=== PATIENT | female | born 1965 | race Caucasian/White ===

== ENCOUNTER 2022-05-24 08:39 | Outpatient (CLI) | payer BC, SELFPAY ==
[2022-05-24 15:12] LABS: Chloride* 106 mmol/L (96-114)
[2022-05-24 15:13] LABS: Sodium* 138 mmol/L (135-149)
[2022-05-24 15:15] LABS: Creatinine* 0.6 mg/dL (0.5-1.5); Estimated Glomerular Filt Rate 103 ml/min
[2022-05-24 15:16] LABS: Blood Urea Nitrogen* 13 mg/dL (7-30); Calcium* 9.1 mg/dL (8.4-10.6); Carbon Dioxide* 25 mmol/L (20-32); Glucose* 104 mg/dL (60-115)
== END 2022-05-24 08:40 | disposition home or self-care (01) ==
PROVIDERS: PCP Family Medicine; Visit Provider Family Medicine
DX: Z13.1 Encounter for screening for diabetes mellitus (principal); E78.5 Hyperlipidemia, unspecified; F41.9 Anxiety disorder, unspecified; Z13.0 Encounter for screening for diseases of the blood and blood-forming organs and certain disorders involving the immune mechanism
CPT/HCPCS: 80048

== ENCOUNTER 2022-09-29 13:42 | Outpatient (CLI) | payer BC, SELFPAY | END 2022-09-29 13:43 | disposition home or self-care (01) | LOC: LONREF 13:44 | PROVIDERS: PCP Family Medicine; Visit Provider Family Medicine | DX: I10 Essential (primary) hypertension (principal); E78.5 Hyperlipidemia, unspecified | CPT/HCPCS: 80048 ==

== ENCOUNTER 2022-11-01 07:01 | Outpatient (CLI) | payer BC, SELFPAY ==
--- NOTE | 2022-11-01 07:15 | CRLHL7_ITS ---
For Patients: As a result of the Century Cures Act, medical imaging exams and procedure reports are released immediately into your electronic medical record. You may view this report before your referring provider. If you have questions, please contact your health care provider. Indication: Headaches and intermittent blurred vision Technique: Noncontrast sagittal T1 weighted, axial FLAIR, axial T2 weighted, and axial diffusion weighted sequences are provided. Comparison: No prior studies available for comparison at this institution. Findings: Few small foci of diffusion and FLAIR signal abnormality in the left frontal lobe centrum semiovale without signal loss on ADC map. No evidence of diffusion restriction to suggest acute ischemia. Few additional foci of FLAIR signal abnormality in the left frontal centrum semiovale there nonspecific. Multiple nodular foci of FLAIR signal abnormality in the anterior medial left frontal subcortical white matter without mass effect (series 4 image 24-26). No midline shift. No hydrocephalus. No suspicious extra-axial collection or acute intracranial hemorrhage. Expected intracranial vascular flow voids are preserved. No evidence of pathologic susceptibility artifact. The calvarium is intact. The paranasal sinuses, mastoid air cells, and orbits are unremarkable. Impression: 1. Few small foci of diffusion and FLAIR signal abnormality in the left frontal lobe centrum semiovale without signal loss on ADC map, may represent subacute ischemic infarcts or T2 shine through from chronic microangiopathic changes. 2. 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 Dictated by Spencer Patiño MD @ 11/01/2022 8:32:37 AM (Electronically Signed)
== END 2022-11-01 07:02 | disposition home or self-care (01) ==
PROVIDERS: PCP Family Medicine; Visit Provider Family Medicine
DX: R51.9 Headache, unspecified (principal); H53.8 Other visual disturbances
CPT/HCPCS: 70551

== ENCOUNTER 2023-06-03 08:28 | Outpatient (CLI) | payer BC, SELFPAY | END 2023-06-03 08:29 | disposition home or self-care (01) | PROVIDERS: PCP Family Medicine; Visit Provider Family Medicine | DX: Z00.00 Encounter for general adult medical examination without abnormal findings (principal); I10 Essential (primary) hypertension; E78.5 Hyperlipidemia, unspecified; F41.9 Anxiety disorder, unspecified | CPT/HCPCS: 80048; 80061 ==

== ENCOUNTER 2023-10-04 15:27 | Outpatient (CLI) | payer BC, SELFPAY ==
--- NOTE | 2023-10-04 15:40 | MM_ITS ---
Patient: YEISON CASAREZ Facility:?[facility] Patient ID:?[id number] Site Patient ID:?[id number]. Site :?1965 Study:?XRay-Breast Bilateral 3D W/CAD-10/04/2023 3:53:15 PM Ordering Physician:Armando Final Report: BILATERAL SCREENING MAMMOGRAM WITH COMPUTER-AIDED DETECTION AND TOMOSYNTHESIS TECHNIQUE: CC and MLO views were obtained. These mammographic images have been obtained using full-field digital technique. These mammographic images were interpreted with the benefit of computer-aided detection. Breast Tomosynthesis was used in this interpretation. COMPARISON FILM: 08/14/19, 03/20/15, 05/12/12. FINDINGS: The breasts are heterogeneously dense, which may obscure small masses. IMPRESSION: There is no radiographic evidence for malignancy. ASSESSMENT: BI-RADS Category 1: Negative RECOMMENDATION: Routine screening mammogram in 1 year. A lay language report of this examination will be provided to the patient. Spencer Hedrick M.D. Diagnostic Radiologist [email or web address] DSM/sp R& Transcribed: 5:53 p.m. SP/Dictated by: Spencer Hedrick MD @ 10/05/2023 1:26:00 PM Signed by:?Spencer Hedrick MD @10/06/2023 5:40:59 AM (Electronic Signature)
== END 2023-10-04 15:28 | disposition home or self-care (01) ==
PROVIDERS: PCP Family Medicine; Visit Provider Family Medicine
DX: Z12.31 Encounter for screening mammogram for malignant neoplasm of breast (principal); R92.2 Inconclusive mammogram
CPT/HCPCS: 77063; 77067

== ENCOUNTER 2024-06-29 08:32 | Outpatient (CLI) | payer BC, SELFPAY | END 2024-06-29 08:33 | disposition home or self-care (01) | PROVIDERS: PCP Family Medicine; Visit Provider Family Medicine | DX: I10 Essential (primary) hypertension (principal) | CPT/HCPCS: 80048 ==

== ENCOUNTER 2024-09-22 19:16 | Inpatient (IN) | payer BC, SELFPAY ==
--- OUTSIDE RECORDS SUMMARY | 2024-09-22 19:19 | XMS_ITS | Clinical Summary ---
Author Organization [facility] Address [facility] [place] [address] Care Team Providers Care Services Coordinator Name Role Phone Gume Elena MD Primary Care Provider [phone] Allergies No known active allergies Medications ALPRAZolam (XANAX) 0.5 mg tablet Take 0.5 mg by mouth. In am Active omeprazole (PRILOSEC) 20 mg Delayed-Release capsule Take 20 mg by mouth once daily if needed. Active WalkerIndicatio ns:Spondylolist hesis of lumbar region Rolling Walker for home use for 3 months 1 Device 01/04/2019 Active Premarin 0.625 mg tablet 11/16/2022 Active metoprolol succinate (TOPROL XL) 25 mg Sustained-Relea se tablet Take 25 mg by mouth once daily. 11/26/2022 Active lisinopriL (PRINIVIL; ZESTRIL) 40 mg tablet Take 40 mg by mouth once daily. 10/24/2022 Active fluticasone (50 mcg per actuation) nasal solution (FLONASE) SHAKE LIQUID AND USE 2 SPRAYS IN EACH NOSTRIL EVERY DAY 11/17/2022 Active Active Problems Problem Noted Date Diagnosed Date Spondylolisthesis of lumbar region 01/01/2019 Anxiety 01/01/2019 GERD (gastroesophageal reflux disease) 9 Hot flashes 01/01/2019 Tobacco abuse 01/01/2019 Social History Tobacco Use Types Packs/Day Years Used Date Smoking Tobacco: Every Day Cigarettes 0.5 42 Started: 1980 Smokeless Tobacco: Never Tobacco Cessation:Ready to Q uit: Yes; Counseling Given: Yes Alcohol Use Standard Drinks/Week Comments No 0 (1 standard drink = 0.6 oz pur e alcohol) Comments No Sex and Gender Information Value Date Recorded Sex Assigned at Not on file 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 Gender Identity Not on file Sexual Orientation Not on file Obstetrics History Last Filed Vital Signs Vital Sign Reading Time Taken Comments Blood Pressure 181/79 12/01/2022 2:50 PM CDT Pulse 82 12/01/2022 2:50 PM CDT Temperature 37.1 C (98.8 F) 01/04/2019 7:37 AM CDT Respiratory Rate 16 01/04/2019 7:37 AM CDT Oxygen Saturation 96% 12/01/2022 2:50 PM CDT Inhaled Oxygen Concentration - - Weight 64.1 kg (141 lb 4.8 oz) 12/01/2022 2:50 P M CDT Height 160 cm (5' 2.99) 01/01/2019 6:31 AM CDT Body Mass Index 25.04 01/01/2019 6:31 AM CDT Plan of Treatment Health Maintenance Due Date Last Done Comments Tdap 1974 Depression screening for age 12+ 1975 HIV for age 15-65 1978 Hepatitis C screening for age 18-79 1981 Pneumococcal series for age 50+ (1 of 2 - PCV) 1982 Tetanus booster 1983 Pap test for age 21-65 01/27/1984 Colonoscopy through age 75 01/27/2008 Lipids for age 45-75 01/27/2008 Mammogram for age 45-75 01/27/2008 Zoster (shingles) series for age 50+ (1 of 2) 2013 BMI (ht and wt on same day) for age 18+ 05/08/2017 1 COVID-19 vaccine series (2023- season) 2024 07/21/2021, 09/22/2020 Influenza for age 50-64 04/01/2024 RSV vaccine for adults or pr egnancy (1 - 1-dose 75+ series) 2038 Medical Devices Implanted Type Area Occupational Health Physiotherapist Device Identifier Shelf Expiration Date Model / Serial / Lot [id number] ne 1-4mm 90cc Medtronic Chips Canclls Freeze Dried Implanted:Qty: 1 on 01/01/2019 by Emmaunel Serrano MD at [facility] Explanted:at [facility] (Quantity not on file) Spine Medtronic Spine/Ortho 05/13/2023 [id number] / [id number] / [id number] ne Matrix 6cc [place] Dbf Putty Dbm Implanted:Qty: 1 on 01/01/2019 by Emmanuel Serrano MD at [facility] Explanted:at [facility] (Quantity not on file) Spine Medtronic Spine/Ortho 11/06/2020 [id number] / [id number] / Cnnctr Lmbr Sm 5.5mm Tsrh 3dx Titnm - [id number] Implanted:Qty: 6 on 01/01/2019 by Emmanuel Serrano MD at [facility] Spine Medtronic Spine/Ortho [id number] / / Gianluca Lmbr 90x5.5mm Tsrh 3d Cvd Titnm - [id number] Implanted:Qty: 2 on 01/01/2019 by Emmanuel Serrano MD at [facility] Spine Medtronic Spine/Ortho [id number] / / Screw Lmbr Post 6.5x45mm Tsrh 3dx Og Thin Va - [id number] Implanted:Qty: 2 on 01/01/2019 by Emmanuel Serrano MD at [facility] Spine Medtronic Spine/Ortho [id number] / / Screw Lmbr Post 7.5x40mm Tsrh 3dx Og Thin Va - [id number] Implanted:Qty: 2 on 01/01/2019 by Emmanuel Serrano MD at [facility] Spine Medtronic Spine/Ortho [id number] / / Screw Lmbr Post 7.5x45mm Tsrh 3dx Og Thin Va - [id number] Implanted:Qty: 2 on 01/01/2019 by Emmanuel Serrano MD at [facility] Spine Medtronic Spine/Ortho [id number] / / Spacer [id number] Implanted:Qty: 1 on 01/01/2019 by Emmanuel Serrano MD at [facility] Spine 04/20/2025 [id number] / / [id number] Description:SPACER [id number] Insurance Advance Directives * Full Code (Latest Code Status on File) Date Activated Date Inactivated Comments 01/01/2019 1:06 PM 01/04/2019 4:04 PM * Full Code Date Activated Date Inactivated Comments 07/19/2011 5:49 PM 07/20/2011 4:47 PM * Full Code Date Activated Date Inactivated Comments 07/19/2011 12:34 PM 07/19/2011 5:49 PM Care Teams Services Coordinator Relationship Specialty Start Date End Date Gume Elena MD PCP - General Family Practice 07/16/11
[2024-09-22 19:30] VITALS: BP 146/78; PULSE 81; RESP 18; TEMP 36.6; O2SAT 98; BMI 23.9
--- NOTE | 2024-09-22 19:53 | ED.GENADULT ---
HPI - General Adult General Chief complaint: Abdominal Pain Stated complaint: abdomen pain, vomiting Time Seen by Provider: 09/22/24 19:36 History of Present Illness HPI narrative: This 59-year-old female comes in with upper epigastric pain that began this afternoon. She states that it is a rather constant pain and occurred after eating at [employer] at lunch. It came on a our 2 later and has been constant since then. She does not report any nausea, vomiting, lightheadedness, shortness of breath, or diaphoresis. She has had her gallbladder removed. She denies drinking alcohol. She does take Protonix for reflux symptoms. Related Data Previous Rx's ?Medication ?Instructions ?Recorded alprazolam 0.5 mg tablet 0.5 mg PO QDAY #60 tabs 04/09/24 lisinopril 40 mg tablet 40 mg PO QDAY #90 tabs 06/20/24 chlorthalidone 25 mg tablet 12.5 mg (1/2 x 25 mg) PO QDAY #45 06/29/24 tabs fluticasone propionate 50 2 spray intranasal QDAY #16 grams 06/29/24 mcg/actuation nasal spray,suspension lisinopril 20 mg tablet 20 mg PO QDAY #90 tabs 06/29/24 metoprolol succinate 50 mg 50 mg PO QDAY #90 tabs 06/29/24 tablet,extended release 24 hr olopatadine 0.1 % eye drops 1 drp ophthalmic (eye) BID #5 mL 06/29/24 pantoprazole 40 mg tablet,delayed 40 mg PO QDAY #90 tabs 08/10/24 release (Protonix) conjugated estrogens 1.25 mg tablet 1.25 mg PO QDAY #90 tabs 08/21/24 Allergies Allergy/AdvReac Type Severity Reaction Status Date / Time Penicillins Allergy Mild sick Verified 06/29/24 07:51 Review of Systems Status of ROS: Reports: 10 or more systems reviewed and unremarkable except as noted in History and below Narrative: Constitutional: No fevers, no weight gain or loss. Eyes: No discharge. No vision changes. HENT: No congestion, no sore throat, no ear pain. Cardiovascular: No chest pain, no palpitations. Respiratory: No shortness of breath, no wheezes, no cough. Gastrointestinal: No vomiting, no diarrhea. Upper epigastric abdominal pain as described above. Genitourinary: No dysuria, no hematuria. Musculoskeletal: Normal range of motion. Skin: No rashes, no pruritis. Neurological: No dizziness, weakness, sensory change, speech change. Endo/Heme/Allergies: No bruising or bleeding. No polydipsia. Pysch: no suicidality, no anxiety, no insomnia. All other systems reviewed and are negative. [facility] Medical History Allergic conjunctivitis ?H10.10 - Acute atopic conjunctivitis, unspecified eye (ICD-10) Hoarseness ?R49.0 - Dysphonia (ICD-10) Surgical History S/P lumbar fusion ?Z98.1 - Arthrodesis status (ICD-10) S/P ?Z98.891 - History of uterine scar from previous surgery (ICD-10) Status post laparoscopic cholecystectomy ?Z90.49 - Acquired absence of other specified parts of digestive tract (ICD-10) Status post hysterectomy ?Z90.710 - Acquired absence of both cervix and uterus (ICD-10) Status post bilateral oophorectomy ?Z90.722 - Acquired absence of ovaries, bilateral (ICD-10) Status post arthroscopy of right shoulder ?Z98.890 - Other specified postprocedural states (ICD-10) Family History (Updated 07/02/24 @ 11:53 by Carlee Colvin ~ [facility]) Mother High blood pressure Liver disease Kidney disease Daughter High blood pressure Social History (Updated 07/02/24 @ 11:54 by Carlee Colvin ~ [facility]) Highest level of school completed/degree received: 12th grade, no diploma Physical activity type: walking Smoking Status: Current some day smoker How often do you have a drink containing alcohol: never AUDIT-C Alcohol total score: 0 Non-prescribed substance use: denies use Gender Identity: female Are you currently sexually active: No Exam Narrative: Exam Narrative: Constitutional: Well-developed, well-nourished, no acute distress. HEENT: Normocephalic, atraumatic. Neck: Normal range of motion. Nontender. Supple. Heart: Regular. No murmurs. Normal rate. Intact distal pulses. Lungs: Clear to auscultation. No chest discomfort. No wheezes, rhonchi, or rales. Abdomen: Normal bowel sounds. Tenderness in the upper epigastric region. No rebound tenderness. Genitalia: Deferred. Back: No midline tenderness. Normal range of motion. Extremities: Normal range of motion. No injury. Skin: Intact. No rash. Warm. No erythema or pallor. Neurologic: No altered sensation. No weakness. Alert and oriented. Psychiatric: No suicidality. No anxiety or depression. No insomnia. Nursing notes and vitals signs are reviewed. Const: Vital Signs, click to edit/add: Vital Signs - 24 hr 09/22/24 19:30 Temperature 97.8 F Pulse Rate [Right Pulse Oximeter] 81 Respiratory Rate 18 Blood Pressure [Ri ght Upper Arm] 146/78 H Pulse Oximetry 98 Oxygen Delivery Me thod Room Air Course Vital Signs Vital signs: Initial Vital Signs Temperature 97.8 F 09/22/24 19:30 Temperature Source Temporal Artery Scan 09/22/24 19:30 Pulse Rate 81 09/22/24 19:30 Pulse Rhythm Regular 09/22/24 19:30 Pulse Strength 3+ Normal 09/22/24 19:30 Respiratory Rate 18 09/22/24 19:30 Blood Pressure 146/78 H 09/22/24 19:30 Blood Pressure Mean 100 09/22/24 19:30 Blood Pressure Position Standing 09/22/24 19:30 Pulse Oximetry 98 09/22/24 19:30 Oxygen Delivery Method Room Air 09/22/24 19:30 Vital Signs Temperature 97.8 F 09/22/24 19:30 Pulse Rate 81 09/22/24 19:30 Respiratory Rate 18 09/22/24 19:30 Blood Pressure 146/78 H 09/22/24 19:30 Pulse Oximetry 98 09/22/24 19:30 Oxygen Delivery Method Room Air 09/22/24 19:30 Temperature 97.8 F 09/22/24 19:30 Pulse Rate 81 09/22/24 19:30 Respiratory Rate 18 09/22/24 19:30 Blood Pressure 146/78 H 09/22/24 19:30 Pulse Oximetry 98 09/22/24 19:30 Oxygen Delivery Method Room Air 09/22/24 19:30 Medications Administered Medications: Generic Name Dose Route Start Last Admin Trade Name Freq PRN Reason Stop Dose Admin Lidocaine/Aluminum/Magnesium/Simeth 30 ml 09/22/24 19:49 09/22/24 19:54 Gi Cocktail (Visc Lido/Antacid) 30 Ml PO 09/22/24 19:50 30 ml ONCE ONE Administration Medical Decision Making MDM Narrative Medical decision making narrative: This patient comes in with upper epigastric abdominal pain as described above. She did receive a GI cocktail initially which did not provide any particular change in her symptoms. I then recommended an IV with labs and CT imaging to further evaluate. These tests were ordered and results are pending at the end of my shift. The patient also received IV doses of Toradol and Zofran. The oncoming ER physician will review results and proceed accordingly. Discharge Plan Discharge Clinical Impression: Abdominal pain Prescriptions: No Action chlorthalidone 25 mg tablet 12.5 mg PO QDAY Qty: 45 3RF lisinopril 20 mg tablet 20 mg PO QDAY Qty: 90 3RF metoprolol succinate 50 mg tablet extended release 24 hr 50 mg PO QDAY Qty: 90 3RF olopatadine 0.1 % drops 1 drp ophthalmic (eye) BID Qty: 5 11RF Rx Instructions: separate doses by at least 6-8 hours fluticasone propionate 50 mcg/actuation spray,suspension 2 spray intranasal QDAY Qty: 16 5RF Rx Instructions: administer into each nostril alprazolam 0.5 mg tablet 0.5 mg PO QDAY Qty: 60 2RF lisinopril 40 mg tablet 40 mg PO QDAY Qty: 90 0RF pantoprazole [Protonix] 40 mg tablet,delayed release (DR/EC) 40 mg PO QDAY Qty: 90 2RF conjugated estrogens 1.25 mg tablet 1.25 mg PO QDAY Qty: 90 3RF Follow Up/Referrals: Gume Elena MD [Primary Care Provider] -
[2024-09-22] MEDS: GI COCKTAIL (VISC LIDO/ANTACID) 30 ML PO (19:54)
--- OUTSIDE RECORDS SUMMARY | 2024-09-22 20:05 | XMS_ITS | Clinical Summary ---
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 Gender Identity Not on file Sexual Orientation [...] series) 2038 Medical Devices Implanted Type Area Apiculturist Device Identifier Shelf Expiration Date Model / Serial / Lot [id number] ne 1-4mm 90cc Medtronic Chips Canclls Freeze Dried Implanted:Qty: 1 on 01/01/2019 by Emmanuel Serrano MD at [facility] Explanted:at [facility] (Quantity not on file) Spine Medtronic Spine/Ortho 05/13/2023 [id number]# / [id number] / [id number] ne Matrix 6cc [place] Dbf Putty Dbm Implanted:Qty: 1 on 01/01/2019 by Emmanuel Serrano MD at [facility] Explanted:at [facility] (Quantity not on file) Spine Medtronic Spine/Ortho 11/06/2020 [id number]# / [id number] / Cnnctr Lmbr Sm 5.5mm Tsrh 3dx Titnm - [id number] Implanted:Qty: 6 on 01/01/2019 by Emmanuel Serrano MD at [facility] Spine Medtronic Spine/Ortho [id number] / / Gianluca Lmbr 90x5.5mm Tsrh 3d Cvd Titnm - [id number] Implanted:Qty: 2 on 01/01/2019 by Emmanuel Serrano MD at [facility] Spine Medtronic Spine/Ortho [id number] / / Screw Lmbr Post 6.5x45mm Tsrh 3dx Og Thin Va - [id number] Implanted:Qty: 2 on 01/01/2019 by Emmanuel Serrano MD at [facility] Spine Medtronic Spine/Ortho [id number] / / Screw Lmbr Post 7.5x40mm Tsrh 3dx Og Thin Va - [id number] Implanted:Qty: 2 on 01/01/2019 by Emmanuel Serrano MD at [facility] Spine Medtronic Spine/Ortho [id number] / / Screw Lmbr Post 7.5x45mm Tsrh 3dx Og Thin Va - [id number] Implanted:Qty: 2 on 01/01/2019 by Emmanuel Serrano MD at [facility] Spine Medtronic Spine/Ortho [id number] / / Spacer [id number] Implanted:Qty: 1 on 01/01/2019 by Emmanuel Serrano MD at [facility] Spine 04/20/2025 [id number] / / [id number] Description:SPACER [id number] Insurance Advance Directives * Full Code (Latest Code Status on File) Date Activated Date Inactivated Comments 01/01/2019 1:06 PM 01/04/2019 4:04 PM * Full Code Date Activated Date Inactivated Comments 07/19/2011 5:49 PM 07/20/2011 4:47 PM * Full Code Date Activated Date Inactivated Comments 07/19/2011 12:34 PM 07/19/2011 5:49 PM Care Teams Perfect Binder Feeder Offbearer Relationship Specialty Start Date End Date Gume Elena MD PCP - General Family Practice 07/16/11
--- NOTE | 2024-09-22 20:18 | CRLHL7_ITS ---
For Patients: As a result of the Century Cures Act, medical imaging exams and procedure reports are released immediately into your electronic medical record. You may view this report before your referring provider. If you have questions, please contact your health care provider. INDICATION: Upper abdominal/epigastric pain. TECHNIQUE: CT abdomen and pelvis acquired with 67 cc Omnipaque 370 IV contrast. COMPARISON: None. FINDINGS: Lower chest: Unremarkable. Liver: Unremarkable. Gallbladder and bile ducts: Cholecystectomy. No biliary calculi. There is mild intrahepatic biliary dilatation with mild enhancement of the common bile duct. Pancreas: Unremarkable. Spleen: Unremarkable. Adrenal glands: Unremarkable. Kidneys: Unremarkable. GI tract: No bowel obstruction. Mild ascending colonic wall thickening. Normal appendix. Vasculature: Atherosclerotic vascular calcifications. Grossly patent vasculature. No abdominal aortic aneurysm. Lymph nodes: No suspicious lymphadenopathy. Peritoneum/Abdominal Wall: No ascites or pneumoperitoneum. No acute abdominal wall abnormality. Pelvis: Normal bladder. No suspicious adnexal mass. Left adnexal cyst measures 2.0 cm. Bones: No acute abnormality. Lumbar fixation hardware grossly intact. IMPRESSION: 1. Mild intrahepatic biliary dilatation. While some of this may be expected in setting of prior cholecystectomy, presence of minimal common bile duct enhancement may reflect sequelae of ascending biliary tract infection. Clinical correlation recommended. 2. Mild ascending colonic wall thickening may reflect mild colitis. Please note that all CT scans at this facility use dose modulation, iterative reconstruction, and/or weight-based dosing when appropriate to reduce radiation dose to as low as reasonably achievable. Dictated by Loco Gomez MD @ 09/22/2024 10:04:56 PM (Electronically Signed)
[2024-09-22 21:11] LABS: Basophils Absolute Auto 0.02 K/uL (0.00-0.30); Basophils Percent Auto 0.3 % (0.0-3.0); Eosinophils Absolute Auto 0.07 K/uL (0.00-0.50); Eosinophils Percent Auto 1.1 % (0.0-7.0); Hematocrit 38.7 % (33.0-51.0); Hemoglobin* 12.8 gm/dL (12.0-16.0); Immature Granulocytes Abs Auto 0.01 K/uL (0.00-0.30); Immature Granulocytes Pct Auto 0.2 %; Lymphocytes Absolute Auto 1.42 K/uL (0.90-2.90); Lymphocytes Percent Auto 21.5 % (20-44); Mean Corpuscular HGB Conc 33 gm/dL (32-36); Mean Corpuscular Hemoglobin 30 pg (26-34); Mean Corpuscular Volume 91 fL (80-100); Monocytes Percent Auto 6.7 % (0.0-11.0); Neutrophils Absolute Auto 4.64 K/uL (1.7-7.0); Neutrophils Percent Auto 70.2 % (42.0-72.0); Platelet Count* 129 K/uL (140-440); RDW Coefficient of Variation % 13.6 % (11.5-15.5); Red Blood Count 4.27 m/uL (4.00-5.20); Slide Review Reflex No
[2024-09-22 21:26] LABS: Albumin* 4.4 g/dL (3.3-5.0); Chloride* 102 mmol/L (96-114); Potassium* 3.5 mmol/L (3.6-5.1); Sodium* 135 mmol/L (135-149)
[2024-09-22 21:28] LABS: Est. Creatinine Clearance* 48.87; Estimated Glomerular Filt Rate 64 ml/min
[2024-09-22 21:29] LABS: Anion Gap 11 mEq/L (7-15); Aspartate Amino Transferase* 543 U/L (12-35); Bilirubin Direct* 1.8 mg/dL (0.0-0.5); Blood Urea Nitrogen* 22 mg/dL (7-30); Calcium* 9.8 mg/dL (8.4-10.6); Carbon Dioxide* 22 mmol/L (20-32); Glucose* 128 mg/dL (60-115); Total Protein* 6.9 g/dL (6.0-8.3)
[2024-09-22 21:30] LABS: Alkaline Phosphatase* 376 U/L (40-150); Lipase* 389 U/L (23-300)
[2024-09-22 21:44] LABS: Alanine Aminotransferase* 785 U/L (4-35)
[2024-09-22 22:14] VITALS: BP 177/69; PULSE 60; RESP 18; TEMP 36.8; O2SAT 98
[2024-09-22] MEDS: KETOROLAC 30 MG/ML inj 15 MG IVP (22:21)
[2024-09-22] MEDS: ONDANSETRON 2 MG/ML inj 4 MG IVP (22:23)
[2024-09-22 23:06] VITALS: BP 149/65; PULSE 58; RESP 20; TEMP 36.4; O2SAT 90; BMI 24.6
[2024-09-22] MEDS: ERTAPENEM 1 GM in 0.9 % SODIUM CHLORIDE Mini-bag 100 ML IVPB (23:08)
--- NOTE | 2024-09-23 | CRLHL7_ITS ---
For Patients: As a result of the Cures Act, medical imaging exams and procedure reports are released immediately into your electronic medical record. You may view this report before your referring provider. If you have questions, please contact your health care provider. INDICATION: Pancreatitis. Hepatitis. COMPARISON: CT scan of the abdomen and pelvis dated 22 September 2024. FINDINGS: MRCP with heavily T2 weighted 2D and 3D MRCP images. T1 in- and out of phase and T2 weighted images also performed. No gadolinium administered. FINDINGS: No fatty infiltration of the liver. No focal abnormalities identified in the visualized portions of the liver, spleen, pancreas, right adrenal gland, and kidneys. No hydronephrosis. 2.1 cm left adrenal nodule shows signal dropout on the out of phase images and meets imaging criteria for an adrenal adenoma. No adenopathy. Cholecystectomy. No intra or extrahepatic bile duct dilation with the common bile duct measuring 8 mm. No filling defects in the biliary system. Normal size of the main pancreatic duct. Impression : 1. No bile duct dilation. No choledocholithiasis. Normal size of the main pancreatic duct. 2. No abnormalities of the pancreas identified. 3. Left adrenal adenoma. Dictated by Roney Anderson MD @ 09/23/2024 11:33:00 AM (Electronically Signed)
--- NOTE | 2024-09-23 00:32 | P.IMHP_ITS ---
Hospitalist- H&P: HPI History of Present Illness Date Seen: 09/23/24 Chief complaint: abdomen pain, vomiting Narrative: Tejal Jim is a 59 year old female with prior cholecystectomy and gastroesophageal reflux disease admitted through the emergency department with onset of epigastric pain around 2:00 a.m. this afternoon. This occurred about an hour after eating at [employer] for lunch. She reports she had a similar episode when she was in [place]. That episode was self-limited. She has been in [facility] for the last 2 weeks. She returned home last evening and she was feeling fine at that time. She self induced vomiting x2 today without relief of symptoms. She took Pepto- Bismol without relief of symptoms. She has been on her pantoprazole for reflux. She reports her reflux symptoms are primarily a burning sensation in her throat which she has not had today. The pain is in her epigastrium. It is a sharp pain. It does not radiate. She has had no fever. She had a cholecystectomy performed by Dr. Fisher in May of 2021 without complications. She rarely drinks alcohol. She had 2 drinks while she was in [place]. She has had no change in her bowel function. Her stools are normally loose or soft and often float in the toilet. Normal brown color. She was taking Imodium in [place] Review of Systems Narrative: She reports feeling well without other symptoms except as noted above [facility] Medical History (Updated 09/23/24 @ 00:44 by Sushil Jaime MD) Pancreatitis ?K85.90 - Acute pancreatitis without necrosis or infection, unspecified (ICD- 10) Hepatitis ?K75.9 - Inflammatory liver disease, unspecified (ICD-10) Allergic conjunctivitis ?H10.10 - Acute atopic conjunctivitis, unspecified eye (ICD-10) Hoarseness ?R49.0 - Dysphonia (ICD-10) Surgical History S/P lumbar fusion ?Z98.1 - Arthrodesis status (ICD-10) S/P ?Z98.891 - History of uterine scar from previous surgery (ICD-10) Status post laparoscopic cholecystectomy ?Z90.49 - Acquired absence of other specified parts of digestive tract (ICD- 10) Status post hysterectomy ?Z90.710 - Acquired absence of both cervix and uterus (ICD-10) Status post bilateral oophorectomy ?Z90.722 - Acquired absence of ovaries, bilateral (ICD-10) Status post arthroscopy of right shoulder ?Z98.890 - Other specified postprocedural states (ICD-10) Family History Mother High blood pressure Liver disease Kidney disease Daughter High blood pressure Social History (Updated 09/23/24 @ 00:39 by Sushil Jaime MD) Narrative: She lives in [place] with her boyfriend. Her daughter, Dionna Jim, taran Early is healthcare power of denture processor. Code status is full. She smokes cigarettes. She rarely drinks alcohol. She does not use recreational drugs. What is your current living situation?: I presently have a place to live Problems where you live: no known problems Problems where you live details: n/a In the past 12 months, utilities in danger of being shut off: no In past 12 months, lack of transportation kept you from medical appts, meetings, work, or getting things needed for daily living: no In the past 12 mos, have been you worried that your food would run out before you had money to buy more?: never true In the past 12 mos, the food you bought just didn't last and you didn't have money to buy more?: never true Highest level of school completed/degree received: 12th grade, no diploma Physical activity type: walking Smoking Status: Current every day smoker What tobacco products do you use: cigarettes Smoking packs per day: 0.5 Smoking cigarettes per day: 10.0 Years smoked: 40 Smoking pack-years: 20.00 How often do you have a drink containing alcohol: never AUDIT-C Alcohol total score: 0 Non-prescribed substance use: denies use Caffeine: Yes (occasionally) How often does anyone, including family, friends and others, physically hurt you : never How often does anyone, including family, friends and others, insult or talk down to you: never How often does anyone, including family, friends and others, threaten you with harm: never How often does anyone, including family, friends and others, scream or curse at you: never Gender Identity: female Are you currently sexually active: No Meds Home Medications and Allergies Home Medication Comments: Home medications reviewed. Recent changes include cutting her lisinopril from 40 mg to 20 mg and conjugated estrogen from 1.25 mg to 0.625 mg daily Allergies Allergy/AdvReac Type Severity Reaction Status Date / Time Penicillins Allergy Mild sick Verified 06/29/24 07:51 Exam Narrative: Exam Narrative: She is alert and appears in no distress. She reports feeling much better now at the time I see her. Eyes are normal without scleral icterus. Oropharynx is normal neck is supple without mass or adenopathy. Respirations are clear to auscultation. Cardiovascular: S1, S2, regular rate and rhythm. No murmur gallop or rub. Abdomen: Bowel sounds active. Abdomen is soft without significant tenderness. Even palpation in her epigastrium she reports is much better. There is no mass. Extremities without edema. Intact pulses and sensation. No tremor Const: Vital Signs, click to edit/add: Vital Signs - 24 hr 09/22/24 19:30 09/22/24 22:14 09/22/24 23:06 Temperature 97.8 F 98.2 F 97.5 F L Pulse Rate [Pulse Oximeter] 58 L Pulse Rate [Right Pulse Oximeter] 81 60 Respiratory Rate 18 18 20 Blood Pressure [Ri ght Arm] 149/65 H Blood Pressure [Ri ght Upper Arm] 146/78 H 177/69 H Pulse Oximetry 98 98 90 Oxygen Delivery Me thod Room Air Room Air Room Air Documenting provider has reviewed patient's vital signs: yes Hospitalist - H&P: Result Labs Labs: Short CBC 09/22/24 Range/Units 20:49 WBC 6.60 (4.50-11.00) K/uL Hgb 12.8 (12.0-16.0) gm/dL Hct 38.7 (33.0-51.0) % Plt Count 129 L (140-440) K/uL BMP 09/22/24 20:49 Sodium 135 Potassium 3.5 L Chloride 102 Carbon Dioxide 22 BUN 22 Creatinine 1.0 Glucose 128 H Calcium 9.8 Liver Function 09/22/24 Range/Units 20:49 Total Bilirubin 2.0 H (0.1-1.5) mg/dL Direct Bilirubin 1.8 H (0.0-0.5) mg/dL AST 543 H (12-35) U/L ALT 785 H (4-35) U/L Alkaline Phosphatase 376 H (40-150) U/L Albumin 4.4 (3.3-5.0) g/dL Imaging CT scan - abdomen: Radiologist's impression: INDICATION: Upper abdominal/epigastric pain. TECHNIQUE: CT abdomen and pelvis acquired with 67 cc Omnipaque 370 IV contrast. COMPARISON: None. FINDINGS: Lower chest: Unremarkable. Liver: Unremarkable. Gallbladder and bile ducts: Cholecystectomy. No biliary calculi. There is mild intrahepatic biliary dilatation with mild enhancement of the common bile duct. Pancreas: Unremarkable. Spleen: Unremarkable. Adrenal glands: Unremarkable. Kidneys: Unremarkable. GI tract: No bowel obstruction. Mild ascending colonic wall thickening. Normal appendix. Vasculature: Atherosclerotic vascular calcifications. Grossly patent vasculature. No abdominal aortic aneurysm. Lymph nodes: No suspicious lymphadenopathy. Peritoneum/Abdominal Wall: No ascites or pneumoperitoneum. No acute abdominal wall abnormality. Pelvis: Normal bladder. No suspicious adnexal mass. Left adnexal cyst measures 2.0 cm. Bones: No acute abnormality. Lumbar fixation hardware grossly intact. IMPRESSION: 1. Mild intrahepatic biliary dilatation. While some of this may be expected in setting of prior cholecystectomy, presence of minimal common bile duct enhancement may reflect sequelae of ascending biliary tract infection. Clinical correlation recommended. 2. Mild ascending colonic wall thickening may reflect mild colitis. Please note that all CT scans at this facility use dose modulation, iterative reconstruction, and/or weight-based dosing when appropriate to reduce radiation dose to as low as reasonably achievable. Dictated by Loco Gomez MD @ 09/22/2024 10:04:56 PM Assessment and Plan Assessment and plan (1) Abdominal pain: Problem comment: Sharp epigastric pain. With associated changes and lipase and transaminases I suspect she may have biliary obstruction, possibly due to a gallstone. Obtain MRCP or ultrasound. Surgical consult. Trend abnormal labs. Ertapenem for possible cholangitis Status: Acute (2) Pancreatitis: Problem comment: Possibly due to biliary disease. Clinically better. Trend lipase. Status: Acute (3) Hepatitis: Problem comment: Suspect due to biliary disease. Check acute hepatitis panel. Status: Acute (4) GERD (gastroesophageal reflux disease): Problem comment: Continue PPI Status: Acute Plan 59-year-old female admitted to the hospital with pancreatitis and hepatitis. Clinically improved from ER treatment. Continue antibiotics, further imaging, surgical consult, trend abnormal labs. Total Time Spent Total Time Spent: Total time spent is 75 minutes in reviewing past records, coordination of care, discussing with patient and other providers ongoing evaluation management of hepatitis and pancreatitis
[2024-09-23] MEDS: LACTATED RINGERS 500 ML 500 ML IV (00:34)
[2024-09-23] MEDS: LACTATED RINGERS 1000 ML 1,000 ML 75 ML IV (00:51)
[2024-09-23 05:10] VITALS: BP 146/60; PULSE 61; RESP 18; TEMP 36.6; O2SAT 94
[2024-09-23 06:52] LABS: Basophils Absolute Auto 0.03 K/uL (0.00-0.30); Basophils Percent Auto 0.5 % (0.0-3.0); Eosinophils Absolute Auto 0.14 K/uL (0.00-0.50); Eosinophils Percent Auto 2.4 % (0.0-7.0); Hematocrit 36.1 % (33.0-51.0); Immature Granulocytes Abs Auto 0.01 K/uL (0.00-0.30); Immature Granulocytes Pct Auto 0.2 %; Lymphocytes Absolute Auto 2.15 K/uL (0.90-2.90); Lymphocytes Percent Auto 37.1 % (20-44); Mean Corpuscular HGB Conc 33 gm/dL (32-36); Mean Corpuscular Hemoglobin 30 pg (26-34); Mean Corpuscular Volume 91 fL (80-100); Monocytes Percent Auto 8.8 % (0.0-11.0); Neutrophils Absolute Auto 2.96 K/uL (1.7-7.0); Platelet Count* 278 K/uL (140-440); RDW Coefficient of Variation % 13.7 % (11.5-15.5); Red Blood Count 3.99 m/uL (4.00-5.20)
[2024-09-23 06:57] LABS: Slide Review Reflex No
[2024-09-23 07:07] LABS: Albumin* 3.8 g/dL (3.3-5.0); Chloride* 103 mmol/L (96-114); Potassium* 3.7 mmol/L (3.6-5.1)
[2024-09-23 07:09] LABS: Est. Creatinine Clearance* 48.87; Estimated Glomerular Filt Rate 64 ml/min
[2024-09-23 07:10] LABS: Alanine Aminotransferase* 666 U/L (4-35); Alkaline Phosphatase* 370 U/L (40-150); Aspartate Amino Transferase* 393 U/L (12-35); Bilirubin Direct* 1.9 mg/dL (0.0-0.5); Bilirubin Total* 2.2 mg/dL (0.1-1.5); Blood Urea Nitrogen* 21 mg/dL (7-30); Calcium* 9.2 mg/dL (8.4-10.6); Carbon Dioxide* 24 mmol/L (20-32); Glucose* 94 mg/dL (60-115); Lipase* 133 U/L (23-300); Total Protein* 6.2 g/dL (6.0-8.3)
--- NOTE | 2024-09-23 08:12 | PC.NURSE ---
Shift note ([id number]: Patient admitted from ED at 2300. Pleasant, alert and oriented. Ambulates independently or with stand by assistance with IV pole. Abdominal pain improved since ED arrival. Pt had one unmeasured void and void of 100mL at 0500. Urine is bright kaufman colored. Pt NPO since admission. ?
[2024-09-23 08:14] VITALS: BP 144/54; PULSE 60; PULSE 61; RESP 18; O2SAT 97
[2024-09-23] MEDS: ALPRAZolam 0.25 MG TABLET 0.5 MG PO (08:32)
[2024-09-23] MEDS: PANTOPRAZOLE SODIUM 40 MG INJ IVP (08:32)
[2024-09-23 09:06] LABS: Anion Gap 9 mEq/L (7-15); Sodium* 136 mmol/L (135-149)
[2024-09-23] MEDS: METOPROLOL SUCCINATE (XL) 50 MG TAB PO (10:36)
[2024-09-23] MEDS: lisinopriL 20 MG TABLET PO (10:37)
[2024-09-23] MEDS: SODIUM CHLORIDE 0.9 % (FLUSH) 10 ML SYRINGE 5 ML IVF ×2 (10:37→21:28)
[2024-09-23] MEDS: CHLORTHALIDONE 25 MG TABLET 12.5 MG PO (10:37)
--- NOTE | 2024-09-23 12:16 | PM.IMPN1 ---
Progress Note: A&P Assessment and plan (1) Hepatitis: Problem details: -initially thought to be obstructive; MRCP reassuring -she could have passed a stone; differential widened after normal MCRP: -acute hepatitis panel, blood cultures for typhoid, stool exam for ova and parasites with culture and PCR for pathogens, PCR for leptospirosis -supportive care, trend labs Status: Acute (2) Pancreatitis: Problem details: -improved Status: Acute (3) Abdominal pain: Problem details: -resolved; advancing diet. Status: Acute (4) GERD (gastroesophageal reflux disease): Problem details: Continue PPI Status: Acute (5) Tobacco use disorder: Problem details: 1/2 PPD, started age 16 Status: Acute (6) Anxiety: Status: Acute (7) Hypertension: Status: Acute Subjective Date Seen: 09/23/24 Interval history: Daily Progress Note - Hospital Medicine Day #:2 CC: Transaminitis, abdominal pain, recent travel to [place] 24 HOUR UPDATE: pain improved; hungry. she reports orange urine. Notable Labs, Micro, Rads, Interventions: Vital stable. No fever. CBC stable Electrolytes normal. Bilirubin trending up. Direct bilirubin uptrending as well. Mild decreases in the overall transaminitis. Elevated lipase resolved blood cultures pending MRCP 1. No bile duct dilation. No choledocholithiasis. Normal size of the main pancreatic duct. 2. No abnormalities of the pancreas identified. 3. Left adrenal adenoma. Objective: talkative. no acute distress. not jaundice. Vitals: see above Lungs: Clear. Cardiac: S1S2. Abdomen: soft. no guarding. Disposition/Potential discharge - likely home. Today I spent 50minutes seeing the patient, reviewing Expanse and EPIC notes/diagnostics, discussing the care plan with our care time that includes social work, PT/OT, pharmacy, RT, usp and documenting my impressions and plan in the medical record. Exam Const: Vital Signs, click to edit/add: Vital Signs - 24 hr 09/22/24 19:30 09/22/24 22:14 09/22/24 23:06 Temperature 97.8 F 98.2 F 97.5 F L Pulse Rate [Pulse Oximeter] 58 L Pulse Rate [Right Pulse Oximeter] 81 60 Respiratory Rate 18 18 20 Blood Pressure [Le ft Arm] Blood Pressure [Ri ght Arm] 149/65 H Blood Pressure [Ri ght Upper Arm] 146/78 H 177/69 H Pulse Oximetry 98 98 90 Oxygen Delivery Me thod Room Air Room Air Room Air 09/23/24 05:10 09/23/24 08:14 09/23/24 08:14 Temperature 97.9 F Pulse Rate [Pulse Oximeter] 61 61 60 Pulse Rate [Right Pulse Oximeter] Respiratory Rate 18 18 18 Blood Pressure [Le ft Arm] 146/60 H 144/54 H Blood Pressure [Ri ght Arm] Blood Pressure [Ri ght Upper Arm] Pulse Oximetry 94 97 Oxygen Delivery Me thod Room Air Room Air Labs Labs: Laboratory Results - last 24 hr 09/22/24 09/23/24 20:49 05:49 WBC 6.60 5.80 RBC 4.27 3.99 L Hgb 12.8 12.0 Hct 38.7 36.1 MCV 91 91 MCH 30 30 MCHC 33 33 RDW Coeff of Lynne 13.6 13.7 Plt Count 129 L 278 Neut % (Auto) 70.2 51.0 Lymph % (Auto) 21.5 37.1 [place] % (Auto) 6.7 8.8 Eos % (Auto) 1.1 2.4 Baso % (Auto) 0.3 0.5 Neut # (Auto) 4.64 2.96 Lymph # (Auto) 1.42 2.15 [place] # (Auto) 0.40 0.50 Eos # (Auto) 0.07 0.14 Baso # (Auto) 0.02 0.03 Abs Immat Gran (auto) 0.01 0.01 Imm/Tot Granulo (auto) 0.2 0.2 Sodium 135 136 Potassium 3.5 L 3.7 Chloride 102 103 Carbon Dioxide 22 24 Anion Gap 11 9 BUN 22 21 Creatinine 1.0 1.0 Estimated Creat Clear 48.87 48.87 Estimated GFR 64 64 Glucose 128 H 94 Calcium 9.8 9.2 Total Bilirubin 2.0 H 2.2 H Direct Bilirubin 1.8 H 1.9 H AST 543 H 393 H ALT 785 H 666 H Alkaline Phosphatase 376 H 370 H Total Protein 6.9 6.2 Albumin 4.4 3.8 Lipase 389 H 133
[2024-09-23 13:00] VITALS: BP 138/51; PULSE 54; RESP 18; TEMP 36.5; O2SAT 96
--- NOTE | 2024-09-23 13:19 | PM.GSCN ---
History of Present Illness Consult details Date Seen: 09/23/24 Consult date: 09/23/24 Narrative: The patient is a 59-year-old female who presented to the emergency department last evening with severe epigastric pain. She was found to have elevated LFTs including direct bilirubin of 1.9, and lipase. She had previously been in [place] and had had a similar episode. Prior to the onset of yesterday symptoms she was eating [employer] and then an hour later she developed pain, nausea and vomiting. She previously had a cholecystectomy 2 years ago. In addition to the elevated liver tests, workup revealed biliary dilatation. She states that other than the single episode in [place] she has not had other symptoms. The pain seemed to radiate around her upper abdomen. She has had a history of heartburn and has had EGDs x2. She used to take Nexium however this was causing chest pain and so she switched to omeprazole. On the omeprazole she had abdominal pain and has been now taking pantoprazole. She is wondering if that was related. When she was in [place] she did have several sick contacts. She states that she would take Imodium almost daily so that she would not have stools during the day. She states that her stools were soft but not necessarily diarrhea. She had not taken any Imodium 2 days prior to presenting to the emergency department. [facility] Medical History (Updated 09/23/24 @ 12:18 by Milly Gonzalez MD) Pancreatitis ?K85.90 - Acute pancreatitis without necrosis or infection, unspecified (ICD-10) Hepatitis ?K75.9 - Inflammatory liver disease, unspecified (ICD-10) Allergic conjunctivitis ?H10.10 - Acute atopic conjunctivitis, unspecified eye (ICD-10) Hoarseness ?R49.0 - Dysphonia (ICD-10) Surgical History S/P lumbar fusion ?Z98.1 - Arthrodesis status (ICD-10) S/P ?Z98.891 - History of uterine scar from previous surgery (ICD-10) Status post laparoscopic cholecystectomy ?Z90.49 - Acquired absence of other specified parts of digestive tract (ICD-10) Status post hysterectomy ?Z90.710 - Acquired absence of both cervix and uterus (ICD-10) Status post bilateral oophorectomy ?Z90.722 - Acquired absence of ovaries, bilateral (ICD-10) Status post arthroscopy of right shoulder ?Z98.890 - Other specified postprocedural states (ICD-10) Family History Mother High blood pressure Liver disease Kidney disease Daughter High blood pressure Social History (Updated 09/23/24 @ 00:39 by Sushil Jaime MD) Narrative: She lives in [place] with her boyfriend. Her daughter, Dionna Jim, taran Early is healthcare power of senior attorney. Code status is full. She smokes cigarettes. She rarely drinks alcohol. She does not use recreational drugs. What is your current living situation?: I presently have a place to live Problems where you live: no known problems Problems where you live details: n/a In the past 12 months, utilities in danger of being shut off: no In past 12 months, lack of transportation kept you from medical appts, meetings, work, or getting things needed for daily living: no In the past 12 mos, have been you worried that your food would run out before you had money to buy more?: never true In the past 12 mos, the food you bought just didn't last and you didn't have money to buy more?: never true Highest level of school completed/degree received: 12th grade, no diploma Physical activity type: walking Smoking Status: Current every day smoker What tobacco products do you use: cigarettes Smoking packs per day: 0.5 Smoking cigarettes per day: 10.0 Years smoked: 40 Smoking pack-years: 20.00 How often do you have a drink containing alcohol: never AUDIT-C Alcohol total score: 0 Non-prescribed substance use: denies use Caffeine: Yes (occasionally) How often does anyone, including family, friends and others, physically hurt you: never How often does anyone, including family, friends and others, insult or talk down to you: never How often does anyone, including family, friends and others, threaten you with harm: never How often does anyone, including family, friends and others, scream or curse at you: never Gender Identity: female Are you currently sexually active: No Meds Home Medications and Allergies Home Medications ?Medication ?Instructions ?Recorded ?Confirmed ?Type fluticasone propionate 50 2 spray intranasal QDAY PRN 09/23/24 09/23/24 History mcg/actuation nasal spray,suspension olopatadine 0.1 % eye drops 1 drp ophthalmic (eye) BID PRN 09/23/24 09/23/24 History Allergies Allergy/AdvReac Type Severity Reaction Status Date / Time Penicillins Allergy Mild sick Verified 06/29/24 07:51 Exam Narrative: Exam Narrative: General appearance: Alert, cooperative, and in no distress Eyes: PERRLA, eye lids clear, and sclera white HENT Head: Normocephalic Ears: External ears normal Pulmonary: Breathing nonlabored on room air Cardiovascular Heart: Regular rate Extremities: warm and well perfused Gastrointestinal Abdominal: Soft, nontender. Musculoskeletal: Extremities: Upper: Both upper extremities have normal joint range of motion and intact strength. Lower: Both lower extremities have normal joint range of motion and intact strength. Skin: Normal skin color, texture, and turgor. Neurologic: No focal deficits Psychiatric: Alert, oriented, cooperative, normal affect. Const: Vital Signs, click to edit/add: Vital Signs - 24 hr 09/22/24 19:30 09/22/24 22:14 09/22/24 23:06 Temperature 97.8 F 98.2 F 97.5 F L Pulse Rate [Pulse Oximeter] 58 L Pulse Rate [Right Pulse Oximeter] 81 60 Respiratory Rate 18 18 20 Blood Pressure [Le ft Arm] Blood Pressure [Ri ght Arm] 149/65 H Blood Pressure [Ri ght Upper Arm] 146/78 H 177/69 H Pulse Oximetry 98 98 90 Oxygen Delivery Me thod Room Air Room Air Room Air 09/23/24 05:10 09/23/24 08:14 09/23/24 08:14 Temperature 97.9 F Pulse Rate [Pulse Oximeter] 61 61 60 Pulse Rate [Right Pulse Oximeter] Respiratory Rate 18 18 18 Blood Pressure [Le ft Arm] 146/60 H 144/54 H Blood Pressure [Ri ght Arm] Blood Pressure [Ri ght Upper Arm] Pulse Oximetry 94 97 Oxygen Delivery Me thod Room Air Room Air Results Labs Labs: Abnormal lab results 09/22/24 09/23/24 Range/Units 20:49 05:49 RBC 3.99 L (4.00-5.20) m/uL Plt Count 129 L (140-440) K/uL Potassium 3.5 L (3.6-5.1) mmol/L Glucose 128 H (60-115) mg/dL Total Bilirubin 2.0 H 2.2 H (0.1-1.5) mg/dL Direct Bilirubin 1.8 H 1.9 H (0.0-0.5) mg/dL AST 543 H 393 H (12-35) U/L ALT 785 H 666 H (4-35) U/L Alkaline Phosphatase 376 H 370 H (40-150) U/L Lipase 389 H (23-300) U/L Diabetes panel 09/22/24 09/23/24 Range/Units 20:49 05:49 Sodium 135 136 (135-149) mmol/L Potassium 3.5 L 3.7 (3.6-5.1) mmol/L Chloride 102 103 (96-114) mmol/L Carbon Dioxide 22 24 (20-32) mmol/L BUN 22 21 (7-30) mg/dL Creatinine 1.0 1.0 (0.5-1.5) mg/dL Glucose 128 H 94 (60-115) mg/dL Calcium 9.8 9.2 (8.4-10.6) mg/dL AST 543 H 393 H (12-35) U/L ALT 785 H 666 H (4-35) U/L Alkaline Phosphatase 376 H 370 H (40-150) U/L Total Protein 6.9 6.2 (6.0-8.3) g/dL Albumin 4.4 3.8 (3.3-5.0) g/dL Calcium panel 09/22/24 09/23/24 Range/Units 20:49 05:49 Calcium 9.8 9.2 (8.4-10.6) mg/dL Albumin 4.4 3.8 (3.3-5.0) g/dL Pituitary panel 09/22/24 09/23/24 Range/Units 20:49 05:49 Sodium 135 136 (135-149) mmol/L Potassium 3.5 L 3.7 (3.6-5.1) mmol/L Chloride 102 103 (96-114) mmol/L Carbon Dioxide 22 24 (20-32) mmol/L BUN 22 21 (7-30) mg/dL Creatinine 1.0 1.0 (0.5-1.5) mg/dL Glucose 128 H 94 (60-115) mg/dL Calcium 9.8 9.2 (8.4-10.6) mg/dL Adrenal panel 09/22/24 09/23/24 Range/Units 20:49 05:49 Sodium 135 136 (135-149) mmol/L Potassium 3.5 L 3.7 (3.6-5.1) mmol/L Chloride 102 103 (96-114) mmol/L Carbon Dioxide 22 24 (20-32) mmol/L BUN 22 21 (7-30) mg/dL Creatinine 1.0 1.0 (0.5-1.5) mg/dL Glucose 128 H 94 (60-115) mg/dL Calcium 9.8 9.2 (8.4-10.6) mg/dL Total Bilirubin 2.0 H 2.2 H (0.1-1.5) mg/dL AST 543 H 393 H (12-35) U/L ALT 785 H 666 H (4-35) U/L Alkaline Phosphatase 376 H 370 H (40-150) U/L Total Protein 6.9 6.2 (6.0-8.3) g/dL Albumin 4.4 3.8 (3.3-5.0) g/dL All other labs normal. Imaging Abdomen CT scan report/results: report reviewed and image reviewed Additional studies: CT Abdomen: IMPRESSION: 1. Mild intrahepatic biliary dilatation. While some of this may be expected in setting of prior cholecystectomy, presence of minimal common bile duct enhancement may reflect sequelae of ascending biliary tract infection. Clinical correlation recommended. 2. Mild ascending colonic wall thickening may reflect mild colitis. Dictated by Loco Gomez MD @ 09/22/2024 10:04:56 PM MRI abdomen: Impression : 1. No bile duct dilation. No choledocholithiasis. Normal size of the main pancreatic duct. 2. No abnormalities of the pancreas identified. 3. Left adrenal adenoma. Dictated by Roney Anderson MD @ 09/23/2024 11:33:00 AM Progress Note:A&P Assessment and plan (1) Pancreatitis: Status: Acute (2) Hepatitis: Status: Acute (3) Elevated liver enzymes: Status: Acute Plan The patient is a 59-year-old female with elevated LFTs and epigastric pain which is now resolved. LFTs remain elevated in what appears to be a cholestatic pattern. MRCP was negative for biliary obstruction or dilatation. -differential includes hepatitis, other viral illness, or enteritis secondary to recent travel. Sphincter of Rosas dysfunction possibly also could be on the differential as well. -recommend patient follow-up with primary care provider as outpatient. If LFTs are still elevated then would recommend Gastroenterology consult for further workup. -okay to advance diet as tolerated.
[2024-09-23 15:00] VITALS: BP 146/51; PULSE 58; RESP 18; O2SAT 97
[2024-09-23 19:00] VITALS: BP 132/53; PULSE 62; RESP 18; TEMP 36.6; O2SAT 96
--- NOTE | 2024-09-23 19:49 | PC.NURSE ---
Nursing Care Hours: [id number] Pt this shift calm and cooperative, alert and oriented. No c/o pain this shift. Independent in room. Voiding. Pending BM for sample. Saline locked. Tolerating regular diet.
[2024-09-23 23:00] VITALS: BP 127/51; PULSE 63; TEMP 36.8; O2SAT 94
[2024-09-24] MEDS: ERTAPENEM 1 GM in 0.9 % SODIUM CHLORIDE Mini-bag 100 ML IVPB (00:57)
[2024-09-24 05:00] VITALS: BP 133/55; PULSE 73; RESP 18; TEMP 36.9; O2SAT 93
[2024-09-24 06:26] LABS: Basophils Absolute Auto 0.02 K/uL (0.00-0.30); Basophils Percent Auto 0.3 % (0.0-3.0); Eosinophils Absolute Auto 0.08 K/uL (0.00-0.50); Eosinophils Percent Auto 1.1 % (0.0-7.0); Hematocrit 35.4 % (33.0-51.0); Hemoglobin* 11.7 gm/dL (12.0-16.0); Immature Granulocytes Abs Auto 0.01 K/uL (0.00-0.30); Immature Granulocytes Pct Auto 0.1 %; Lymphocytes Percent Auto 16.7 % (20-44); Mean Corpuscular HGB Conc 33 gm/dL (32-36); Mean Corpuscular Hemoglobin 30 pg (26-34); Mean Corpuscular Volume 91 fL (80-100); Monocytes Percent Auto 6.7 % (0.0-11.0); Neutrophils Percent Auto 75.1 % (42.0-72.0); Platelet Count* 264 K/uL (140-440); RDW Coefficient of Variation % 13.7 % (11.5-15.5); Red Blood Count 3.91 m/uL (4.00-5.20); White Blood Count* 7.59 K/uL (4.50-11.00)
[2024-09-24 06:35] LABS: Slide Review Reflex No
[2024-09-24 07:02] LABS: Albumin* 3.7 g/dL (3.3-5.0); Chloride* 103 mmol/L (96-114)
[2024-09-24 07:03] LABS: Potassium* 3.5 mmol/L (3.6-5.1); Sodium* 135 mmol/L (135-149)
[2024-09-24 07:05] LABS: Creatinine* 0.8 mg/dL (0.5-1.5); Est. Creatinine Clearance* 48.87; Estimated Glomerular Filt Rate 84 ml/min
[2024-09-24 07:06] LABS: Alanine Aminotransferase* 502 U/L (4-35); Alkaline Phosphatase* 428 U/L (40-150); Anion Gap 5 mEq/L (7-15); Aspartate Amino Transferase* 203 U/L (12-35); Bilirubin Direct* 2.9 mg/dL (0.0-0.5); Bilirubin Total* 3.2 mg/dL (0.1-1.5); Blood Urea Nitrogen* 15 mg/dL (7-30); Calcium* 9.1 mg/dL (8.4-10.6); Carbon Dioxide* 27 mmol/L (20-32); Glucose* 125 mg/dL (60-115)
[2024-09-24 07:30] VITALS: BP 136/55; PULSE 67; RESP 16; TEMP 36.6; O2SAT 95
[2024-09-24] MEDS: ALPRAZolam 0.25 MG TABLET 0.5 MG PO (07:43)
--- NOTE | 2024-09-24 07:53 | PC.NURSE ---
Shift note ([id number]: Patient?alert and oriented. IV to left hand was tender and no longer flushing at 2330. IV discontinued at that time. New 22 gauge IV placed in left AC. Ambulates independently. Reported some mid upper gastric pain rated 4/10 during the night. Reported she feels she is just bloated. Reports passing less gas today than yesterday. Declined lemon/cherokee soda and amadeo jelani when offered. PRN Morphine and Tylenol were offered, however pt declined. Encouraged pt to walk in hallways to help get gas/bowels moving however she has remained in her room. Pt denied pain at 0530.?
[2024-09-24 08:00] LABS: Immature Reticulocyte Fraction 3.3 % (3.0-15.9); Reticulocyte Hemoglobin Equivi 32.8 pg (29.0-35.0); Reticulocyte Percent 0.6 % (0.5-2.0); Reticulocytes Absolute 0.02 # (0.03-0.08)
[2024-09-24 08:17] LABS: Lactate Dehydrogenase* 262 U/L (120-246)
--- NOTE | 2024-09-24 10:23 | P.ANES_ITS ---
Anesthesia Charges Start Date/Time Anesthesia Start Date: 09/24/24 Anesthesia Start Time: 10:02 Stop Date/Time Anesthesia Stop Date: 09/24/24 Anesthesia Stop Time: 10:16 Coding CPT Codes CPT Codes: ANES UPR GI NDSC PX NOS - 93906 ([id number]) P2 - PATIENT W/MILD SYST DISEASE, QK - PANTOGRAPH ENGRAVER 2-4 CNCRNT ANES PROC, QX - LOAN ASSISTANT SVC W/ MD MED DIRECTION
--- NOTE | 2024-09-24 10:23 | W.ANESCHARGE ---
Anesthesia Charges Start Date/Time Anesthesia Start Date: 09/24/24 Anesthesia Start Time: 10:02 Stop Date/Time Anesthesia Stop Date: 09/24/24 Anesthesia Stop Time: 10:16 Coding CPT Codes CPT Codes: ANES UPR GI NDSC PX NOS - 44705 ([id number]) P2 - PATIENT W/MILD SYST DISEASE, QK - FRUIT AND VEGETABLE INSPECTOR 2-4 CNCRNT ANES PROC, QX - NEUROSURGERY RESEARCH DIRECTOR SVC W/ MD MED DIRECTION
--- NOTE | 2024-09-24 10:26 | P.ANES_ITS ---
Anesthesia Charges Start Date/Time Anesthesia Start Date: 09/24/24 Anesthesia Start Time: 10:02 Stop Date/Time Anesthesia Stop Date: 09/24/24 Anesthesia Stop Time: 10:16 Coding CPT Codes CPT Codes: ANES UPR GI NDSC PX NOS - 31082 ([id number]) QX - EXHAUSTER SVC W/ MD MED DIRECTION, QK - SECOND OPERATOR 2-4 CNCRNT ANES PROC, P2 - PATIENT W/MILD SYST DISEASE
--- NOTE | 2024-09-24 10:26 | W.ANESCHARGE ---
Anesthesia Charges Start Date/Time Anesthesia Start Date: 09/24/24 Anesthesia Start Time: 10:02 Stop Date/Time Anesthesia Stop Date: 09/24/24 Anesthesia Stop Time: 10:16 Coding CPT Codes CPT Codes: ANES UPR GI NDSC PX NOS - 94891 ([id number]) QX - DISTRICT ASSOCIATE JUDGE SVC W/ MD MED DIRECTION, QK - CRYSTAL LAPPER 2-4 CNCRNT ANES PROC, P2 - PATIENT W/MILD SYST DISEASE
[2024-09-24] MEDS: CHLORTHALIDONE 25 MG TABLET 12.5 MG PO (10:55)
[2024-09-24] MEDS: METOPROLOL SUCCINATE (XL) 50 MG TAB PO (10:55)
[2024-09-24] MEDS: lisinopriL 20 MG TABLET PO (10:56)
[2024-09-24] MEDS: SODIUM CHLORIDE 0.9 % (FLUSH) 10 ML SYRINGE 5 ML IVF (10:57)
[2024-09-24 11:00] VITALS: BP 137/53; PULSE 64; RESP 16; TEMP 36.7; O2SAT 97
--- NOTE | 2024-09-24 16:26 | PM.DS1 ---
DS: Providers Provider Date Seen: 09/24/24 Date of admission: 09/22/24 23:20 Primary care physician: Gume Elena MD Admitting Clinician: Sushil Jaime MD Consults: 09/22/24 23:18 Consult to Physician [CONS] Urgent Comment: Consulting Provider: Negar Goldstein Has provider been notified: Yes Attending Physician on discharge: Milly Gonzalez MD [facility] Date of Discharge: 09/24/24 DS: Diagnosis Discharge Diagnosis (1) Hepatitis: Status: Acute Problem details: -initially thought to be obstructive; MRCP reassuring -she could have passed a stone; differential widened after normal MCRP: -acute hepatitis panel, blood cultures for typhoid, stool exam for ova and parasites with culture and PCR for pathogens, PCR for leptospirosis -supportive care, trend labs (2) Pancreatitis: Status: Acute Problem details: -improved -initial lipase was 389, last check 133. (3) Abdominal pain: Status: Acute Problem details: -resolved; advancing diet. (4) GERD (gastroesophageal reflux disease): Status: Acute Problem details: Continue PPI - at discharge I increased her pantoprazole to 40 mg b.i.d. (5) Hypertension: Status: Acute (6) Anxiety: Status: Acute (7) Tobacco use disorder: Status: Acute Problem details: 1/2 PPD, started age 16 DS: Summary Hospital Course Hospital Course: FINAL DIAGNOSIS/FOLLOW UP ISSUES: 1. Abdominal pain with up trending bilirubin, elevated LFTs. The workup done as an inpatient included MRCP and upper endoscopy. These were both totally normal. Her abdominal pain fluctuated, not severe. Located mid epigastrium. I have increased her pantoprazole. Her initial bilirubin was 2.0 with a direct of 1.8. She had an AST and ALT that were in the 5 and 700s respectively. Alk-phos 376. Her CRP was not elevated. Her LDH was mildly elevated. Her lipase was mildly elevated at 389. Our initial thought was that she was obstructed with choledocholithiasis. This was ruled out with a normal MRCP. It is possible that she passed a stone prior to imaging. She did not have a fever or an elevated white blood cell count or elevated inflammatory markers. Our concern for ascending cholangitis was very low and we stopped broad-spectrum antibiotics after 2 doses.. Despite normal imaging her bilirubin continued to increase and at discharge was 3.2. Her direct was up to 2.9. Her AST had down trended to 203. Her ALT had down trended to 5 O2. Her alk-phos was actually up trending. We performed an upper endoscopy on the day of discharge. This was totally normal. The differential includes a viral hepatitis, hepatitis panel is pending. Stool cultures, ova and parasites and PCR for pathogens given her diarrheal history are pending. However she did not have a stool while she was admitted until the very end of her stay and this was a solid stool. We are recommending outpatient workup and referral to Gastroenterology as necessary. 2. Mild pancreatitis, resolved 3. Anxiety, moderate BRIEF HOSPITAL COURSE: Patient was admitted for 3 days. Synopsis of acute inpatient issues are outlined above. Chronic medical conditions with notable findings outlined above. Tejal was here for 3 days. Investigation and treatments are as of above. She received 2 doses of IV ertapenem and IV fluids. She underwent MRCP and EGD. She was able to tolerate a soft diet on the day of discharge without abdominal pain. Rest of her workup can be outpatient. DISCHARGE MEDICATIONS: See Reconciled list - SIGNIFICANT CHANGES: I increased her PPI to b.i.d. dosing on an empty stomach. Specific instructions to the patient and follow-up are outlined below. REVIEW OF SYSTEMS No new chest pain or dyspnea Pain controlled No voiding difficulties Tolerating diet challenge PHYSICAL EXAM: CONSTITUTIONAL: Anxious. tangential thinking at times. not acutely ill. GENERAL: Well-developed at ideal body weight, in no respiratory distress. VITAL SIGNS: see record. HEENT: Sclerae are anicteric. No petechiae. ABDOMEN: soft. not distendend. no guarding. CARDIAC: rhythm is regular. There is no S3 or rub. No harsh murmurs. Extremities show trace edema with symmetrical pulses. PULM: good air entry with no wheeze. NEURO: Speech is fluent. A brief neurologic exam is negative. SKIN: No rashes, petechiae, concerning changes PSYCHIATRIC: Euthymic. DISPOSITION: home with significant other. Time spent on discharge 37 minutes. Status at Discharge Functional status at discharge: independent ambulation Overall status at discharge: patient is progressing back to baseline Time Spent with Patient Time attestation: Total time spent providing and/or coordinating discharge services: Time spent: Greater than 30 minutes Exam Const: Vital Signs, click to edit/add: Vital Signs - 24 hr 09/23/24 19:00 09/23/24 23:00 09/24/24 05:00 Temperature 97.8 F 98.2 F 98.4 F Pulse Rate [Pulse Oximeter] 62 63 73 Respiratory Rate 18 18 Blood Pressure [Le ft Arm] 132/53 L 127/51 L 133/55 L Blood Pressure [Ri ght Arm] Pulse Oximetry 96 94 93 Oxygen Delivery Me thod Room Air Room Air 09/24/24 07:30 09/24/24 07:30 09/24/24 11:00 Temperature 97.8 F 98.0 F Pulse Rate [Pulse Oximeter] 67 67 64 Respiratory Rate 16 16 16 Blood Pressure [Le ft Arm] Blood Pressure [Ri ght Arm] 136/55 L 137/53 L Pulse Oximetry 95 97 Oxygen Delivery Me thod Room Air Room Air DS: Data Data Completed and Pending Labs on day of discharge: Labs from last 24 hours 09/24/24 09/24/24 09/24/24 13:27 07:39 06:16 WBC 7.59 RBC 3.91 L Hgb 11.7 L Hct 35.4 MCV 91 MCH 30 MCHC 33 RDW Coeff of Lynne 13.7 Plt Count 264 Neut % (Auto) 75.1 H Lymph % (Auto) 16.7 L Sampson % (Auto) 6.7 Eos % (Auto) 1.1 Baso % (Auto) 0.3 Neut # (Auto) 5.70 Lymph # (Auto) 1.30 Sampson # (Auto) 0.50 Eos # (Auto) 0.08 Baso # (Auto) 0.02 Abs Immat Gran (auto) 0.01 Imm/Tot Granulo (auto) 0.1 Absolute Retic 0.02 L Percent Retic 0.6 Immature Retic Fraction 3.3 Retic Hgb Equivalent 32.8 Sodium 135 Potassium 3.5 L Chloride 103 Carbon Dioxide 27 Anion Gap 5 L BUN 15 Creatinine 0.8 Estimated Creat Clear 48.87 Estimated GFR 84 Glucose 125 H Calcium 9.1 Total Bilirubin 3.2 H Direct Bilirubin 2.9 H AST 203 H ALT 502 H Alkaline Phosphatase 428 H Lactate Dehydrogenase 262 H C-Reactive Protein 1.0 Total Protein 6.0 Albumin 3.7 Fld BRIGIDO IgG NEWTON Pending Stl C. cayetanensis PCR Pending Stool Rotavirus A PCR Pending Stool Adenovirus (PCR) Pending Stool Astrovirus (PCR) Pending Stool Campylobacter PCR Pending Stool Cryptosporidium PCR Pending Stl E.coli Shiga Tox PCR Pending Stool E coli O157 PCR Pending Stl Enterotoxigenic E PCR Pending Stool EPEC (PCR) Pending Stool EAEC (PCR) Pending Stl E. histolytica PCR Pending Stool Giardia Lamblia PCR Pending Stl P. shigelloides PCR Pending Stool Salmonella PCR Pending Stool Sapovirus (PCR) Pending Stl Shigella/EIEC PCR Pending St Y.enterocolitica PCR Pending Stool Vibrio (PCR) Pending Stl Vibrio cholerae PCR Pending Stl Norovirus GI/GII PCR Pending Hepatitis A IgM Ab Hep Bs Antigen Hep B Core IgM Ab Hep C Ab Index (JOEL) Hep C Ab Interp JOEL Hepatitis Interpret Ova & Parasites Pending Lab Acknowledgement Test Added 09/22/24 22:22 WBC RBC Hgb Hct MCV MCH MCHC RDW Coeff of Lynne Plt Count Neut % (Auto) Lymph % (Auto) Sampson % (Auto) Eos % (Auto) Baso % (Auto) Neut # (Auto) Lymph # (Auto) Sampson # (Auto) Eos # (Auto) Baso # (Auto) Abs Immat Gran (auto) Imm/Tot Granulo (auto) Absolute Retic Percent Retic Immature Retic Fraction Retic Hgb Equivalent Sodium Potassium Chloride Carbon Dioxide Anion Gap BUN Creatinine Estimated Creat Clear Estimated GFR Glucose Calcium Total Bilirubin Direct Bilirubin AST ALT Alkaline Phosphatase Lactate Dehydrogenase C-Reactive Protein Total Protein Albumin Fld BRIGIDO IgG [place] Stl C. cayetanensis PCR Stool Rotavirus A PCR Stool Adenovirus (PCR) Stool Astrovirus (PCR) Stool Campylobacter PCR Stool Cryptosporidium PCR Stl E.coli Shiga Tox PCR Stool E coli O157 PCR Stl Enterotoxigenic E PCR Stool EPEC (PCR) Stool EAEC (PCR) Stl E. histolytica PCR Stool Giardia Lamblia PCR Stl P. shigelloides PCR Stool Salmonella PCR Stool Sapovirus (PCR) Stl Shigella/EIEC PCR St Y.enterocolitica PCR Stool Vibrio (PCR) Stl Vibrio cholerae PCR Stl Norovirus GI/GII PCR Hepatitis A IgM Ab Pending Hep Bs Antigen Pending Hep B Core IgM Ab Pending Hep C Ab Index (JOEL) Pending Hep C Ab Interp JOEL Pending Hepatitis Interpret Pending Ova & Parasites Lab Acknowledgement Preliminary micro results at discharge 09/23/24 12:27 Blood Culture - Preliminary Blood NO GROWTH AFTER 24 HOURS 09/23/24 12:27 Blood Culture - Preliminary Blood NO GROWTH AFTER 24 HOURS Discharge Plan Discharge Disposition: Home, Self-Care Date of Admission: 09/22/24 23:20 Attending Provider on Discharge: Milly Gonzalez Consulting Providers: Negar Goldstein Primary Care Provider: Gume Elena Condition: Improved Anticipated Discharge Date/Time: 09/24/24 16:18 Discharge Medications: Continued chlorthalidone 25 mg tablet 12.5 mg PO QDAY Qty: 45 3RF lisinopril 20 mg tablet 20 mg PO QDAY Qty: 90 3RF metoprolol succinate 50 mg tablet extended release 24 hr 50 mg PO QDAY Qty: 90 3RF olopatadine 0.1 % drops 1 drp ophthalmic (eye) BID PRN Rx Instructions: separate doses by at least 6-8 hours fluticasone propionate 50 mcg/actuation spray,suspension 2 spray intranasal QDAY PRN Rx Instructions: administer into each nostril alprazolam 0.5 mg tablet 0.5 mg PO QDAY Qty: 60 2RF lisinopril 40 mg tablet 40 mg PO QDAY Qty: 90 0RF conjugated estrogens 1.25 mg tablet 1.25 mg PO QDAY Qty: 90 3RF Changed pantoprazole [Protonix] 40 mg tablet,delayed release (DR/EC) 40 mg PO BID Qty: 90 2RF Discharge Orders: Discharge Order (Routine); Ordered 09/24/24 Ordered By: Milly Gonzalez Additional Instructions: You have tests that are not back at the time of discharge: Viral hepatitis panel and stool cultures. There is also a send out lab for leptospirosis. I would like you to meet with Dr. Elena and discuss the labs that should be back when you see him. He will recheck your labs. He will decide if you need to see a specialist. I would like you to start taking your pantoprazole twice a day. Remember to take this on an empty stomach. Keep your diet bland and in small amounts until you see Dr. Elena. I recommend you stay out of work until cleared by Dr. Ulices. Activity Level: No Restrictions and Activity as Tolerated Discharge Diet: Low Fat/Low Cholesterol and Heart Healthy (2 gm sodium, low fat) Follow Up Appointments: Gume Elena MD [Primary Care Provider] - 10/01/24 11:15 am ([facility] for follow up with PCP) Forms: [employer] Info Instructions
--- NOTE | 2024-09-24 17:57 | PC.NURSE ---
Pt up independently. Upper GI discomfort with paplation. Upper scope complete today, see Dr. Flores's note on scope. Pt tolerates simple intake of broth, juice, Jello, and water without N/V or increase of pain. IV DC'd, cath tip intact. DC instruction given verbally and in writing. Follow up with Dr. Latham to discuss POC and pending labs on 10/01/24. DC to home with boyfriend @ [id number].
[2024-09-25 19:05] LABS: Hep A Ab, IgM Negative (Negative); Hep B Core Ab, IgM Negative (Negative); Hep B Surface Antigen Negative (Negative); Hep C Ab by CIA Index 0.03 IV; Hep C Ab by CIA Interp Negative (Negative)
[2024-09-25 19:10] LABS: Hep A Ab, IgM Negative (Negative); Hep B Core Ab, IgM Negative (Negative); Hep B Surface Antigen Negative (Negative); Hep C Ab by CIA Index 0.04 IV; Hep C Ab by CIA Interp Negative (Negative)
[2024-09-26 09:12] LABS: Anti-Nuclear Ab(ANA)IgG ELISA None Detected (None Detected)
[2024-09-28 13:42] LABS: Adenovirus PCR Not Detected; Astrovirus PCR Not Detected; Campylobacter PCR Not Detected; Cryptosporidium PCR Not Detected; Cyclospora cayetanensis PCR Not Detected; Entamoeba histolytica PCR Not Detected; Enteroaggregative E coli PCR Not Detected; Enteropathogenic E coli PCR Detected; Enterotoxigenic E coli PCR Not Detected; Giardia lamblia PCR Not Detected; Norovirus Gi/GII PCR Not Detected; Plesiomonas shig PCR Not Detected; Rotavirus A PCR Not Detected; Salmonella PCR Not Detected; Sapovirus PCR Not Detected; Shiga toxin E coli PCR Not Detected; Shigella/Enteroinvasive E coli Not Detected; Vibrio PCR Not Detected; Vibrio cholerae PCR Not Detected; Yersinia enterocolitica PCR Not Detected
[2024-10-01 16:41] LABS: Ova and Parasite, Fecal Negative (Negative)
== END 2024-09-24 17:10 | disposition home or self-care (01) ==
LOC: ED 22:30 → MEDSURG 23:04
PROVIDERS: Emergency Medicine Emergency Medical Services; Family Medicine; Admitting Provider Family Medicine; Emergency Provider Family Medicine; PCP Family Medicine; Visit Provider Family Medicine
DX: K75.9 Inflammatory liver disease, unspecified (principal); R10.9 Unspecified abdominal pain; K85.90 Acute pancreatitis without necrosis or infection, unspecified; K21.9 Gastro-esophageal reflux disease without esophagitis; I10 Essential (primary) hypertension; F41.9 Anxiety disorder, unspecified; Z72.0 Tobacco use; B96.29 Other Escherichia coli [E. coli] as the cause of diseases classified elsewhere
CPT/HCPCS: 00731; 36415; 43239; 74177; 74181; 80048; 80074; 80076; 83615; 83690; 83789; 85025; 85045; 86038; 86140; 86720; 87040; 87045; 87046; 87177; 87209; 87427; 87505; 88305; 99284; 99285; A9270; J1335; J1885; J2405; J2470; J2704; J7120; Q9967

== ENCOUNTER 2024-10-01 11:47 | Outpatient (CLI) | payer BC, SELFPAY | END 2024-10-01 11:48 | disposition home or self-care (01) | LOC: LKVREF 11:47 | PROVIDERS: PCP Family Medicine; Visit Provider Family Medicine | DX: K75.9 Inflammatory liver disease, unspecified (principal) | CPT/HCPCS: 80076 ==

== ENCOUNTER 2025-07-01 08:25 | Outpatient (CLI) | payer BC, SELFPAY | END 2025-07-01 08:26 | disposition home or self-care (01) | PROVIDERS: PCP Family Medicine; Visit Provider Family Medicine | DX: I10 Essential (primary) hypertension (principal); E78.00 Pure hypercholesterolemia, unspecified; Z13.29 Encounter for screening for other suspected endocrine disorder | CPT/HCPCS: 80053; 80061; 84443 ==